=== PATIENT | female | born 1980 | race Hispanic/Latino ===

== ENCOUNTER 2017-02-17 12:42 | Emergency (ER) | payer OTHER ==
[~2017-02-17] VITALS: Ht 165.1 cm; Wt 88.5 kg
[2017-02-17 14:51] LABS: HEMATOCRIT 37.2 % (36.0-46.0); MCH 22.7 PG (29.0-34.0); MCHC 30.1 G/DL (30.0-36.0); MCV 75.5 FL (83-99); MEAN PLAT.VOLUME 10.2 uM^3 (9.5-12.4); PLATELET COUNT 308 K/uL (156-360); RBC DIS.WIDTH-CV 19.8 % (11.8-14.6); RED BLOOD COUNT 4.93 M/uL (3.80-5.20); WHITE BLOOD COUNT 5.4 K/uL (4.1-10.2)
[2017-02-17 15:00] LABS: CHLORIDE 104 mEq/L (99-109); POTASSIUM 3.4 mEq/L (3.7-5.4); SODIUM 140 mEq/L (136-147)
[2017-02-17 15:03] LABS: GLUCOSE 117 mg/dL (70-99)
[2017-02-17 15:04] LABS: ANION GAP 11 MEQ/L (2-14)
[2017-02-17 15:05] LABS: TOTAL BILIRUBIN 0.6 mg/dL (0.0-1.0)
[2017-02-17 15:06] LABS: ALKALINE PHOSPHATASE 83 IU/L (3-129)
[2017-02-17 15:07] LABS: UREA NITROGEN (BUN) 13 mg/dL (9-23)
[2017-02-17 15:08] LABS: GFR ESTIMATE (CALCULATED) > 59 mL/min/
[2017-02-17 15:12] LABS: TROP-I INTERPRETATION NEGATIVE; TROPONIN-I < 0.01 ng/mL (0.0-0.30)
[2017-02-17 15:33] LABS: LIPASE 27 U/L (1.0-51.0)
[2017-02-17 17:07] LABS: CREATINE KINASE 139 IU/L (1-294)
[2017-02-17 17:15] LABS: TROP-I INTERPRETATION NEGATIVE; TROPONIN-I < 0.01 ng/mL (0.0-0.30)
[2017-02-17] MEDS ORDERED: MOTRIN800 MG PO (17:45)
[2017-02-17] MEDS ORDERED: TESSALON PERLE100 MG PO (17:45)
[2017-02-17] MEDS ORDERED: ZOFRAN ODT4 MG PO (17:46)
[2017-02-17 18:49] VITALS: BP 130/79
== END 2017-02-17 18:53 | disposition home or self-care (01) ==
LOC: EME 12:42
PROVIDERS: Nurse Practitioner Family
DX: J20.8 Acute bronchitis due to other specified organisms (principal); B34.9 Viral infection, unspecified; R09.1 Pleurisy; R79.89 Other specified abnormal findings of blood chemistry; M54.9 Dorsalgia, unspecified; E11.9 Type 2 diabetes mellitus without complications; Z79.84 Long term (current) use of oral hypoglycemic drugs; Z90.49 Acquired absence of other specified parts of digestive tract
CPT/HCPCS: 71020; 71275; 74177; 80053; 82550 91; 83690; 84484; 85027; 93005; 99281; 99284; J2270; J2405; J7030

== ENCOUNTER 2018-02-11 20:21 | Emergency (ER) | payer OTHER ==
[~2018-02-11] VITALS: Ht 165.1 cm; Wt 93.3 kg
[~2018-02-11 20:21] MED LIST: MOTRIN800 MG PO; TESSALON PERLE100 MG PO; ZOFRAN ODT4 MG PO
[2018-02-11 21:10] LABS: CHLORIDE 104 mEq/L (99-109); POTASSIUM 3.9 mEq/L (3.7-5.4); SODIUM 138 mEq/L (136-147)
[2018-02-11 21:12] LABS: GLUCOSE 126 mg/dL (70-99); HEMATOCRIT 33.8 % (36.0-46.0); HEMOGLOBIN 10.5 G/DL (11.9-15.5); MCHC 31.1 G/DL (30.0-36.0); PLATELET COUNT 297 K/uL (156-360); RBC DIS.WIDTH-CV 17.6 % (11.8-14.6); RBC DIS.WIDTH-SD 46.3 % (39-53); RED BLOOD COUNT 4.57 M/uL (3.80-5.20); WHITE BLOOD COUNT 6.9 K/uL (4.1-10.2)
[2018-02-11 21:16] LABS: CREATININE 0.9 mg/dL (0.6-1.3); GFR ESTIMATE (CALCULATED) > 59 mL/min/
[2018-02-11 21:17] LABS: UREA NITROGEN (BUN) 15 mg/dL (9-23)
[2018-02-11 21:21] LABS: TROP-I INTERPRETATION NEGATIVE; TROPONIN-I < 0.01 ng/mL (0.0-0.30)
[2018-02-11 21:57] LABS: CREATINE KINASE 173 IU/L (1-294)
[2018-02-11 22:07] LABS: APPEARANCE CLEAR ((CLEAR)); BILIRUBIN NEGATIVE; BLOOD NEGATIVE; COLOR STRAW ((YELLOW)); GLUCOSE (STRIP) NEGATIVE; KETONES NEGATIVE; LEUKOCYTES NEGATIVE; NITRITE NEGATIVE; PROTEIN (STRIP) NEGATIVE; SPECIFIC GRAVITY 1.009 (1.000-1.030); UROBILINOGEN 0.2 MG/DL (0.2-1.0)
[2018-02-11 23:01] LABS: THYROTROPIN (TSH) 0.59 MIU/L (0.4-5.5)
[2018-02-12 00:33] LABS: TROP-I INTERPRETATION NEGATIVE; TROPONIN-I < 0.01 ng/mL (0.0-0.30)
[2018-02-12] MEDS ORDERED: NAPROSYN500 MG PO (01:20)
[2018-02-12] MEDS ORDERED: ZANTAC300 MG PO (01:20)
[2018-02-12] MEDS ORDERED: CARAFATE100 MG/ML PO (01:20)
[2018-02-12 02:35] VITALS: BP 121/69
[2018-02-12 10:46] LABS: LYME DISEASE SEROLOGY SCREEN NEGATIVE (NEGATIVE)
== END 2018-02-12 02:35 | disposition home or self-care (01) ==
LOC: EME 20:21
PROVIDERS: Physician Assistant
DX: R07.89 Other chest pain (principal); M25.532 Pain in left wrist; M25.531 Pain in right wrist; M72.2 Plantar fascial fibromatosis; K21.9 Gastro-esophageal reflux disease without esophagitis; E11.9 Type 2 diabetes mellitus without complications; Z90.49 Acquired absence of other specified parts of digestive tract; Z88.0 Allergy status to penicillin
CPT/HCPCS: 71046; 80048; 81003; 82550; 82607; 84439; 84443; 84484; 85027; 86618; 93005; 99281; 99285